=== PATIENT | female | born 1995 | race Caucasian/White ===

== ENCOUNTER 2020-03-03 04:09 | Emergency (ER) | payer OTHER ==
[~2020-03-03] VITALS: Ht 165.1 cm; Wt 59.0 kg
[2020-03-03 04:15] VITALS: BP 130/90
--- NOTE | 2020-03-03 04:15 | NUR ---
ED Nurse Note: Pt brought in by ambulance from streets, pt was found outside of residence under the influence of ETOH. Pt is awake and yelling, uncooperative. Pt placed in bed and on caridac monitor. ISIDRA WU cleared for pt to "sleep it off" , non-labored breathing, will continue to monitor
--- NOTE | 2020-03-03 04:34 | Emergency Room Report ---
History of Present Illness General Chief Complaint: Alcohol Intoxication Source: Patient, EMS (Antonio Zapata MD) Present Illness HPI 24-year-old female presents for alcohol intoxication. Found on street. Brought in by EMS. Patient agitated on arrival. Admits alcohol use. Denies drug use. Denies any fall or injury. Denies pain. Denies abdominal pain nausea or vomiting. States she wants to sleep. No other aggravating relieving factors. Denies any other associated symptoms (Antonio Zapata MD) Allergies: Coded Allergies: No Known Allergies (Unverified , 03/03/20) COVID-19 Screening Contact w/high risk pt: No Recent Travel to affected area: No Experienced COVID-19 symptoms?: No COVID-19 Testing performed [place]: No (Antonio Zapata MD) Patient History Past Medical History: psych hx Past Surgical History: none Pertinent Family History: none Social History: Reports: alcohol use; Denies: smoking, drug use Now: No Immunizations: UTD Reviewed Nursing Documentation: PMH: Agreed; PSxH: Agreed (Antonio Zapata MD) Nursing Documentation-PMH History Of Psychiatric Problem: Yes - depression (Antonio Zapata MD) Review of Systems All Other Systems: negative except mentioned in HPI (Antonio Zapata MD) Physical Exam Vital Signs Date Time Temp Pulse Resp B/P (MAP) Pulse Ox O2 Delivery O2 Flow Rate FiO2 03/03/20 04:11 98.1 80 16 130/90 (103) 97 Room Air Sp02 EP Interpretation: reviewed, normal General Appearance: no apparent distress, alert, GCS 15, non-toxic Head: normocephalic, atraumatic Eyes: bilateral eye normal inspection, bilateral eye PERRL ENT: hearing grossly normal, normal pharynx, no angioedema, normal voice Neck: full range of motion, supple/symm/no masses Respiratory: chest non-tender, lungs clear, normal breath sounds, speaking full sentences Cardiovascular #1: regular rate, rhythm, no edema Cardiovascular #2: 2+ carotid (R), 2+ carotid (L), 2+ radial (R), 2+ radial (L) , 2+ dorsalis pedis (R), 2+ dorsalis pedis (L) Gastrointestinal: normal bowel sounds, non tender, soft, non-distended, no guarding, no rebound Rectal: deferred Genitourinary: normal inspection, no CVA tenderness Musculoskeletal: back normal, normal range of motion, gait/station normal, non- tender Neurologic: alert, motor strength/tone normal, oriented x3, sensory intact, responsive, speech normal Psychiatric: judgement/insight normal, memory normal, mood/affect normal, no suicidal/homicidal ideation Reflexes: 3+ bicep (R), 3+ bicep (L), 3+ tricep (R), 3+ tricep (L), 3+ knee (R) , 3+ knee (L) Lymphatic: no adenopathy (Antonio Zapata MD) Medical Decision Making Diagnostic Impression: Primary Impression: Acute alcoholic intoxication ER Course Reevaluation 8:54 AM patient is walking talking states she wants to leave completely coherent gait is stable disposition home with return precautions follow-up with PCP counseled patient about alcohol use (Mark Loaiza MD) Last Vital Signs Date Time Temp Pulse Resp B/P (MAP) Pulse Ox O2 Delivery O2 Flow Rate FiO2 03/03/20 04:11 98.1 80 16 130/90 (103) 97 Room Air (Antonio Zapata MD) Disposition: HOME, SELF-CARE Condition: Stable Scripts No Active Prescriptions or Reported Meds [facility] Patient Instructions: Alcohol Intoxication, [id number] Additional Instructions: The patient was provided with discharge instructions, notified to follow-up with a primary care doctor and or specialist in the next 24-48 hours, and to return to the ED if they have worsening of their symptoms. Please note that this report is being documented using [employer] technology. This can lead to erroneous entry secondary to incorrect interpretation by the dictating instrument. Antonio Zapata MD March 03, 2020 04:34 Mark Loaiza MD March 03, 2020 08:55
[2020-03-03 07:00] VITALS: BP 125/86
--- NOTE | 2020-03-03 07:00 | NUR ---
ED Nurse Note: Hand off received from jefe iyer. pt shows no acute distress. pt appears comfortable in bed asleep. no outstanding orders from this. ordered to dc pt once awake and sober. pt vss are stable.
[2020-03-03 08:55] VITALS: BP 131/83
--- NOTE | 2020-03-03 08:55 | NUR ---
ED Nurse Note: Pt is awake and took her all belongings. pt show no acute distress. pt is clear for discharge per ermd. vss, pt id band removed. pt is able to ambulate with steady gait. pt is aox4, on room air. dc instructions explained and pt verbalized understanding.
== END 2020-03-03 08:55 | disposition home or self-care (01) ==
LOC: EDBD 04:09 → EMR 04:25
DX: F10.129 Alcohol abuse with intoxication, unspecified (principal); F32.9 Major depressive disorder, single episode, unspecified
CPT/HCPCS: 99283